=== PATIENT | male | born 1950 | race Caucasian/White ===

== ENCOUNTER 2024-09-05 14:33 | Outpatient (REF) | payer SELFPAY | END 2024-09-05 14:34 | disposition home or self-care (01) | LOC: HO.HAP 14:33 | PROVIDERS: Visit Provider Internal Medicine | DX: Z13.89 Encounter for screening for other disorder (principal) ==

== ENCOUNTER 2024-09-06 15:22 | Outpatient (REF) | payer SELFPAY | END 2024-09-06 15:23 | disposition home or self-care (01) | LOC: HO.HAP 15:22 | PROVIDERS: Visit Provider Internal Medicine | DX: Z13.89 Encounter for screening for other disorder (principal) ==